=== PATIENT | female | born 1980 | race Caucasian/White ===

== ENCOUNTER 2019-05-19 13:30 | Emergency (ER) | payer OTHER ==
[~2019-05-19] VITALS: Ht 172.7 cm; Wt 74.5 kg
[2019-05-19 16:17] VITALS: BP 130/69
== END 2019-05-19 17:03 | disposition home or self-care (01) ==
LOC: ED 16:45
DX: K50.00 Crohn's disease of small intestine without complications (principal)
CPT/HCPCS: 36415; 74177; 80053; 81003; 83690; 84703; 85025; 99284; Q9967

== ENCOUNTER → 2020-07-29 | Outpatient (CLI) | payer OTHER ==
[2020-07-29 08:27] LABS: ALBUMIN 3.6 g/dL (3.4-5.0); ANION GAP 6 mmol/L (5-15); CALCIUM 8.7 mg/dL (8.5-10.1); CHLORIDE 108 mmol/L (98-107)
[2020-07-29 08:30] LABS: ALANINE AMINOTRANSFERASE 16 U/L (12-78); ALKALINE PHOSPHATASE 67 U/L (45-117); BILIRUBIN,TOTAL 0.4 mg/dL (0.2-1.0); CHOL/HDL RATIO 2.6; CHOLESTEROL, TOTAL 245 mg/dL (140-239); CREATININE 0.89 mg/dL (0.55-1.02); HDL CHOL % 39 % (28-40); HDL CHOLESTEROL (DIRECT) 96 mg/dL (40-60); LDL CHOLESTEROL,CALCULATED 128 mg/dL (54-169); LDL/HDL RATIO 1.3 (0.5-3.0); TOTAL PROTEIN 7.4 g/dL (6.4-8.2); TRIGLYCERIDES 103 mg/dL (50-200); VLDL CHOLESTEROL 21 mg/dL (0-25)
== END | disposition home or self-care (01) ==
LOC: LAB 08:01
PROVIDERS: ATTEND Family Medicine
DX: E78.5 Hyperlipidemia, unspecified (principal)
CPT/HCPCS: 36415; 80053; 80061

== ENCOUNTER 2021-06-09 10:35 | Outpatient (CLI) | payer OTHER | END 2021-06-09 23:59 | disposition home or self-care (01) | LOC: LAB 10:35 | PROVIDERS: ATTEND Nurse Practitioner Family | DX: E55.9 Vitamin D deficiency, unspecified (principal) | CPT/HCPCS: 36415; 82306 ==